=== PATIENT | female | born 1985 | race Caucasian/White ===

== ENCOUNTER 2020-04-16 14:38 | Emergency (ER) | payer OTHER, SELFPAY ==
[2020-04-16 14:57] VITALS: BP 128/91; PULSE 73; RESP 16; TEMP 36; O2SAT 100
--- NOTE | 2020-04-16 16:22 | ED.GENADULT ---
HPI - General Adult General Chief complaint: Abdominal Pain Stated complaint: I think i have a hernia Time Seen by Provider: 04/16/20 15:36 Source: patient Mode of arrival: ambulatory Limitations: no limitations History of Present Illness HPI narrative: Patient presents with chief complaint of intermittent protrusion and discomfort to her umbilical hernia. Patient states when she is resting or sitting she does not have discomfort however when she is standing for long periods of time such as when she is at work she noticed that it pushes out in some discomfort as cause. Patient denies nausea, vomiting, diarrhea, issues with eating or drinking or blood or mucus in her stool. Patient denies any fever, chills or any other symptoms. Related Data Home Medications Medication Instructions Recorded Confirmed No Home Medications 04/16/20 04/16/20 Allergies Allergy/AdvReac Type Severity Reaction Status Date / Time amoxicillin Allergy Unknown Swelling Unverified 04/16/20 15:29 Review of Systems Review of Systems: Narrative: CONSTITUTIONAL: Denies fever, chills, or sweats. EYES: Denies visual changes, redness, or discharge. ENT: Denies rhinorrhea, congestion, sore throat, or otalgia. CARDIOVASCULAR: Denies chest pain, palpitations, or edema. RESPIRATORY: Denies cough or dyspnea. GASTROINTESTINAL: Reports umbilical hernia denies abdominal pain, nausea, vomiting, or diarrhea. GENITOURINARY: Denies dysuria or hematuria. SKIN: Denies rash or itching. MUSCULOSKELETAL: Denies back pain, joint pain, or myalgia. NEUROLOGIC: Denies headache, numbness, dizziness, or weakness. PSYCHIATRIC: Denies anxiety or depression. [facility] Social History Social History Gender identity (if verbalized by the patient): Female Exam Narrative: Exam Narrative: GENERAL: Well-appearing, well-nourished, and in no acute distress. HEAD: Normocephalic, atraumatic. EYES: PERRLA and EOMI. ENT: Nares clear, no rhinorrhea or epistaxis. Mucous membranes moist. Bilateral TMs pearly campuzano nonbulging NECK: Supple. No adenopathy or masses. No carotid bruits or JVD CHEST: Clear to auscultation. No respiratory distress. No wheezes rales or rhonchi HEART: Regular rate and rhythm. No murmur heard. Normal peripheral pulses. ABDOMEN: Soft, easily reducible umbilical hernia to the inferior aspect. daniel noted, nondistended, normal active bowel sounds. EXTREMITIES: Normal range of motion. No edema. SKIN: Warm, dry, no rash. NEURO: No focal deficits. Alert and oriented x3. PSYCH: Normal mood and affect. Course Vital Signs Vital signs: Vital Signs Temperature 96.8 F L 04/16/20 14:57 Pulse Rate 73 04/16/20 14:57 Respiratory Rate 16 04/16/20 14:57 Blood Pressure 128/91 H 04/16/20 14:57 Pulse Oximetry 100 04/16/20 14:57 Temperature 96.8 F L 04/16/20 14:57 Pulse Rate 73 04/16/20 14:57 Respiratory Rate 16 04/16/20 14:57 Blood Pressure 128/91 H 04/16/20 14:57 Pulse Oximetry 100 04/16/20 14:57 Medical Decision Making MDM Narrative Medical decision making narrative: Discussed with patient that her umbilical hernia is easily reducible and there is not signs of incarceration. Patient agrees to because she does not have any pain or discomfort at this time. Patient states she mostly notices discomfort when she is standing for long periods of time. We discussed an abdominal support to help with this. I also will refer patient to the general surgeon to discuss further options and recommendations. I have discussed with patient that if she develops signs of incarceration such as her hernia not reducing with change of position she needs to come to the emergency department immediately. Patient verbalized understanding, plan denies any other question concerns. Differential Diagnosis Differential Diagnosis: Reducible hernia, incarcerated/strangulated hernia, diverticulitis Vital Signs Vital Signs: Vital Signs Temperature 96.8 F L 04/16/20 14:57
== END 2020-04-16 16:57 | disposition home or self-care (01) ==
PROVIDERS: Emergency Provider Emergency Medicine
DX: K42.9 Umbilical hernia without obstruction or gangrene (principal)
CPT/HCPCS: 99282

== ENCOUNTER 2020-12-28 23:25 | Emergency (ER) | payer OTHER, SELFPAY ==
--- NOTE | ~2020-12-28 | US_ITS ---
US venous doppler [facility] DATE: 12/29/2020 07:27 INDICATION: Bilateral leg swelling and pain TECHNIQUE: Real-time imaging and Doppler analysis of the veins of the lower extremities COMPARISON: None FINDINGS: The greater saphenous veins are patent. There is spontaneous and phasic flow and normal aug mentation and color flow signal and normal compression of the deep veins of both lower extremities. IMPRESSION: No evidence of deep venous thrombosis of the lower extremities Reviewed, dictated and finalized at [facility] Reviewed, dictated and finalized at [facility].
[2020-12-28 23:40] VITALS: BP 110/75; PULSE 80; RESP 16; O2SAT 100
[2020-12-29 00:39] LABS: Basophils Absolute Auto 0.1 K/mm3 (0.0-0.1); Basophils Percent Auto 0.8 % (0.2-1.2); Eosinophils Absolute Auto 0.1 K/mm3 (0-0.3); Eosinophils Percent Auto 1.6 % (0-4.4); Hematocrit 40.7 % (37.0-47.0); Hemoglobin 12.8 g/dL (12.0-15.0); Immature Granulocyte Absolute 0.02 K/mm3 (0.00-0.031); Immature Granulocyte Percent A 0.3 % (0-0.5); Immature Platelet Fraction Pct 2.7 % (0.9-11.2); Lymphocytes Absolute Auto 2.45 K/mm3 (0.9-3.2); Lymphocytes Percent Auto 40.2 % (18.3-44.2); Mean Corpuscular HGB Conc 31.4 g/dl (32-36); Mean Corpuscular Volume 98.5 fl (80-100); Mean Platelet Volume 9.9 fl (7.4-10.4); Monocytes Absolute Auto 0.5 K/mm3 (0.1-0.6); Monocytes Percent Auto 7.7 % (2.6-8.5); Neutrophils Percent Auto 49.4 % (45.5-73.1); Platelet Count Result 197 k/mm3 (150-375); Red Blood Count 4.13 M/mm3 (4.2-5.4); Red Cell Distribution Width 11.8 % (11.5-14.5); White Blood Count 6.1 K/mm3 (4.5-10.0)
[2020-12-29 00:45] VITALS: BP 102/70; PULSE 76; RESP 14; O2SAT 100
[2020-12-29 00:52] LABS: D Dimer 0.49 ug/mL (<0.48)
[2020-12-29 00:59] LABS: Alanine Aminotransferase 16 U/L (4-35); Albumin Level 4.1 g/dL (3.5-5.1); Alkaline Phosphatase 42 U/L (38-126); Anion Gap 10 mmol/L (8-16); Aspartate Amino Transferase 26 U/L (14-36); Bilirubin,Total 0.4 mg/dL (0.2-1.3); Blood Urea Nitrogen 11 mg/dL (7-17); Calcium 8.9 mg/dL (8.4-10.2); Carbon Dioxide 23 mmol/L (22-30); Chloride 105 mmol/L (98-107); Estimated CRCL calculation 114 ml/min; Estimated Glomerular Filt Rate > 60; Glucose 102 mg/dL (65-110); Potassium 3.4 mmol/L (3.4-5.0); Sodium 138 mmol/L (137-145)
[2020-12-29 01:08] LABS: NT Pro B Type Natriuretic Pept 57 pg/mL (5-100)
[2020-12-29] MEDS: ENOXAPARIN 100 MG/ML SYRINGE 89 MG SUB-Q (01:38)
[2020-12-29 01:41] VITALS: BP 92/64; PULSE 70; RESP 14; O2SAT 100
[2020-12-29] MEDS: ACETAMINOPHEN 500 MG TABLET 1000 MG PO (04:53)
[2020-12-29 05:00] VITALS: BP 103/76; PULSE 62; RESP 14; O2SAT 100
[2020-12-29 05:54] VITALS: BP 103/68; PULSE 68; RESP 14; O2SAT 100
--- NOTE | 2020-12-29 06:18 | ED.GENADULT ---
HPI - General Adult General Chief complaint: Extremity Problem,Nontraumatic <Reinaldo Willard MD - Last Filed: 12/29/20 06:24> Stated complaint: bilateral leg swelling x 5 days <Reinaldo Willard MD - Last Filed: 12/29/20 06:24> Time Seen by Provider: 12/28/20 23:37 <Reinaldo Willard MD - Last Filed: 12/29/20 06:24> History of Present Illness HPI narrative: Patient is a 35-year-old female who presents ER with new swelling to her bilateral lower extremities. Occurring over the last 5 days. Notes some mild redness but no warmth or tenderness. Denies fevers or chills or sweats. No recent trauma. No calf cramping. No history of DVT. Patient is without chest pain or chest pressure. She has no shortness of breath. No cough or orthopnea. <Reinaldo Willard MD - Last Filed: 12/29/20 06:24> Related Data Home medications: Home Medications Medication Instructions Recorded Confirmed alprazolam 12/28/20 sertraline mg 12/28/20 <Reinaldo Willard MD - Last Filed: 12/29/20 06:24> Allergies/adverse reactions: Allergies Allergy/AdvReac Type Severity Reaction Status Date / Time amoxicillin Allergy Unknown Swelling Verified 12/28/20 23:45 <Reinaldo Willard MD - Last Filed: 12/29/20 06:24> Review of Systems Review of Systems: All systems reviewed & are unremarkable except as noted in HPI and below <Reinaldo Willard MD - Last Filed: 12/29/20 06:24> Constitutional: Constitutional: Denies chills, Denies fever(s) and Denies weakness <Reinaldo Willard MD - Last Filed: 12/29/20 06:24> ENT: Denies nasal congestion and Denies sore throat <Reinaldo Willard MD - Last Filed: 12/29/20 06:24> Cardiovascular: Cardiovascular: Denies chest pain and Denies radiating jaw, neck or arm pain <Reinaldo Willard MD - Last Filed: 12/29/20 06:24> Respiratory: Respiratory: Denies cough, Denies dyspnea and Denies wheezing <Reinaldo Willard MD - Last Filed: 12/29/20 06:24> Gastrointestinal: Gastrointestinal: Denies abdominal pain, Denies nausea and Denies vomiting <Reinaldo Willard MD - Last Filed: 12/29/20 06:24> Musculoskeletal: Musculoskeletal: Denies joint swelling and Denies muscle cramps <Reinaldo Willard MD - Last Filed: 12/29/20 06:24> Comments: Lower extremity edema <Reinaldo Willard MD - Last Filed: 12/29/20 06:24> PMFSH Past Medical History Medical History: Medical History (Updated 12/29/20 @ 09:48 by Latricia Ruiz MD) Anxiety Depression <Reinaldo Willard MD - Last Filed: 12/29/20 06:24> Surgical History Surgical History: Surgical History (Updated 12/29/20 @ 06:23 by Reinaldo Willard MD) No pertinent past surgical history <Reinaldo Willard MD - Last Filed: 12/29/20 06:24> Social History Social History: Social History Gender identity (if verbalized by the patient): Female <Reinaldo Willard MD - Last Filed: 12/29/20 06:24> Exam Narrative: GENERAL: Well-appearing, well-nourished, and in no acute distress. HEAD: Normocephalic, atraumatic. ENT: Mucous membranes moist. CHEST: Clear to auscultation. No respiratory distress. HEART: Regular rate and rhythm. Normal peripheral pulses. ABDOMEN: Soft, nontender, nondistended. EXTREMITIES: Normal range of motion. 2+ edema. Lower extremities nontender with negative Homans. SKIN: Warm, dry, lower extremities slightly pink without overt cellulitis. NEURO: Alert and oriented x3. PSYCH: Normal mood and affect. <Reinaldo Willard MD - Last Filed: 12/29/20 06:24> Course Reevaluation(s) Reevaluation #1: Patient has no chest pain or sob. I discussed US is negative for DVT. She understands her thyroid levels are pending and PCP can follow up with labs. She has an appointment with PCP on Wednesday. Given instructions about valentina ricci. <Latricia Ruiz MD - Last Filed: 12/29/20 18:29> Date: 12/29/20 <Latricia Ruiz MD - Last Filed: 12/29/20 18:29> T
[2020-12-29 09:30] VITALS: BP 117/98; PULSE 70; RESP 18; O2SAT 100
[2020-12-29 10:51] LABS: Free T4 Free Thyroxine Reflex 0.98 ng/dL (0.78-2.19)
[2020-12-29 11:37] LABS: Total Triiodothyronine (T3) 1.95 NG/ML (0.97-1.69)
== END 2020-12-29 10:31 | disposition home or self-care (01) ==
PROVIDERS: Emergency Provider Emergency Medicine; PCP Family Medicine
DX: R60.0 Localized edema (principal); F41.9 Anxiety disorder, unspecified; F32.9 Major depressive disorder, single episode, unspecified
CPT/HCPCS: 36415; 80053; 83880; 84439; 84443; 84480; 85025; 85055; 85380; 93970; 96372; 99284; A9270; J1650

== ENCOUNTER 2022-03-05 14:46 | Outpatient (CLI) | payer OTHER, SELFPAY ==
[2022-03-05 15:14] LABS: Basophils Percent Auto 0.4 % (0.2-1.2); Eosinophils Absolute Auto 0.1 K/mm3 (0-0.3); Eosinophils Percent Auto 1.4 % (0-4.4); Hematocrit 35.8 % (37.0-47.0); Immature Granulocyte Absolute 0.02 K/mm3 (0.00-0.031); Immature Granulocyte Percent A 0.3 % (0-0.5); Lymphocytes Absolute Auto 2.62 K/mm3 (0.9-3.2); Lymphocytes Percent Auto 36.4 % (18.3-44.2); Mean Corpuscular HGB Conc 33.5 g/dl (32-36); Mean Corpuscular Hemoglobin 30.8 pg (26-34); Mean Corpuscular Volume 91.8 fl (80-100); Mean Platelet Volume 9.5 fl (7.4-10.4); Monocytes Absolute Auto 0.7 K/mm3 (0.1-0.6); Monocytes Percent Auto 9.9 % (2.6-8.5); Neutrophils Absolute Auto 3.7 K/mm3 (1.3-6.7); Neutrophils Percent Auto 51.6 % (45.5-73.1); Platelet Count Result 373 k/mm3 (150-375); Red Cell Distribution Width 12.6 % (11.5-14.5); White Blood Count 7.2 K/mm3 (4.5-10.0)
[2022-03-05 15:28] LABS: Anion Gap 11 mmol/L (8-16); Blood Urea Nitrogen 13 mg/dL (7-17); Calcium 8.8 mg/dL (8.4-10.2); Carbon Dioxide 28 mmol/L (22-30); Chloride 100 mmol/L (98-107); Estimated Glomerular Filt Rate > 60; Glucose 109 mg/dL (65-110); Potassium 3.2 mmol/L (3.4-5.0); Sodium 139 mmol/L (137-145)
[2022-03-08 18:16] LABS: PCP NEGATIVE ng/mL (<25)
[2022-03-13 14:40] LABS: Marijuana Metabolites POSITIVE
[2022-03-13 14:41] LABS: Amphetamines NEGATIVE; Barbiturates NEGATIVE; Benzodiazepines POSITIVE
[2022-03-13 14:42] LABS: Cocaine Metabolites NEGATIVE
== END 2022-03-05 14:47 | disposition home or self-care (01) ==
LOC: ANHLAB 14:52
PROVIDERS: PCP Family Medicine; Visit Provider Family Medicine
DX: Z79.899 Other long term (current) drug therapy (principal); Z13.29 Encounter for screening for other suspected endocrine disorder; Z13.1 Encounter for screening for diabetes mellitus; Z13.0 Encounter for screening for diseases of the blood and blood-forming organs and certain disorders involving the immune mechanism
CPT/HCPCS: 36415; 80048; 80307; 84443; 85025